=== PATIENT | female | born 1955 | race Caucasian/White ===

== ENCOUNTER 2017-09-22 14:19 | Outpatient (CLI) | payer OTHER | END 2017-09-22 14:20 | disposition home or self-care (01) | LOC: BICMAMMO 14:19 | PROVIDERS: ATTEND Family Medicine | DX: Z12.31 Encounter for screening mammogram for malignant neoplasm of breast (principal); M81.0 Age-related osteoporosis without current pathological fracture; Z80.3 Family history of malignant neoplasm of breast | CPT/HCPCS: 77063; 77067; 77080 ==

== ENCOUNTER 2018-04-13 13:07 | Outpatient (CLI) | payer OTHER ==
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
== END 2018-04-13 13:08 | disposition home or self-care (01) ==
LOC: BICRAD 13:07
PROVIDERS: ATTEND Family Medicine
DX: M25.561 Pain in right knee (principal); M25.522 Pain in left elbow; E88.89 Other specified metabolic disorders; M25.461 Effusion, right knee

== ENCOUNTER 2018-10-30 12:25 | Outpatient (CLI) | payer MEDICARE, MEDICAID ==
--- NOTE | 2018-10-30 13:03 | MMO ---
Bilateral MAMMO Bilat Screen [facility]. CLINICAL HISTORY: Patient is 63 years old and is seen for screening. The patient has no personal history of cancer. The patient has a history of right Excisional Biopsy in September, - benign - Cyst removal. VIEWS: The views performed were: bilateral craniocaudal with tomosynthesis and bilateral mediolateral oblique with tomosynthesis. FILMS COMPARED: The present examination has been compared to prior imaging studies performed at [facility] on 05/16/2013, 07/31/2014, 08/06/2015 and 08/30/2016. MAMMOGRAM FINDINGS: There are scattered fibroglandular densities. There are no suspicious masses, suspicious calcifications, or new areas of architectural distortion. IMPRESSION: THERE IS NO MAMMOGRAPHIC EVIDENCE OF MALIGNANCY. A ROUTINE FOLLOW-UP MAMMOGRAM IN 1 YEAR IS RECOMMENDED. THE RESULTS OF THIS EXAM WERE SENT TO THE PATIENT. ACR BI-RADS Category 1 - Negative MAMMOGRAPHY NOTE: 1. A negative mammogram report should not delay a biopsy if a dominant of clinically suspicious mass is present. 2. Approximately 10% to 15% of breast cancers are not detected by mammography. 3. Adenosis and dense breasts may obscure an underlying neoplasm.
== END 2018-10-30 12:26 | disposition home or self-care (01) ==
LOC: BICMAMMO 12:25
PROVIDERS: ATTEND Family Medicine
DX: Z12.31 Encounter for screening mammogram for malignant neoplasm of breast (principal)
CPT/HCPCS: 77063; 77067

== ENCOUNTER 2019-11-19 14:35 | Outpatient (CLI) | payer MEDICARE, MEDICAID ==
--- NOTE | 2019-11-19 15:28 | BD ---
DEXA bone density examination HISTORY: 64-year-old postmenopausal female for screening. Osteoporosis. COMPARISON: None FINDINGS: L1--bone mineral density 0.833 g/sq cm; T score -1.4 L2--bone mineral density 1.022 g/sq cm; T score -0.1 L3--bone mineral density 0.963 g/sq cm; T score -1.1 L4--bone mineral density 0.952 g/sq cm; T score -1.0 Total L1-L4--bone mineral density 0.946 g/sq cm; T score -0.9 Left femoral neck--bone mineral density0.685 g/sq cm; T score -1.5 Total proximal left femur--bone mineral density 0.834 g/sq cm ; T score -0.9 IMPRESSION: 1. Normal bone mineralization of the lumbar spine. 2. Moderate osteopenia of the left femoral neck indicating 2 fold increased risk for fracture.
--- NOTE | 2019-11-19 15:51 | MMO ---
Bilateral MAMMO Bilat Screen [facility]. CLINICAL HISTORY: Patient is 64 years old and is seen for screening. The patient has the following family history of breast cancer: mother, at age 74, malignant (generic). The patient has no personal history of cancer. The patient has a history of right Excisional Biopsy in September, - benign - Cyst removal. VIEWS: The views performed were: bilateral craniocaudal with tomosynthesis and bilateral mediolateral oblique with tomosynthesis. FILMS COMPARED: The present examination has been compared to prior imaging studies performed at [facility] on 07/31/2014, 08/06/2015, 08/30/2016 and 10/30/2018. This study has been interpreted with the assistance of computer-aided detection. MAMMOGRAM FINDINGS: There are scattered fibroglandular densities. There are no suspicious masses, suspicious calcifications, or new areas of architectural distortion. IMPRESSION: THERE IS NO MAMMOGRAPHIC EVIDENCE OF MALIGNANCY. A ROUTINE FOLLOW-UP MAMMOGRAM IN 1 YEAR IS RECOMMENDED. THE RESULTS OF THIS EXAM WERE SENT TO THE PATIENT. ACR BI-RADS Category 1 - Negative MAMMOGRAPHY NOTE: 1. A negative mammogram report should not delay a biopsy if a dominant of clinically suspicious mass is present. 2. Approximately 10% to 15% of breast cancers are not detected by mammography. 3. Adenosis and dense breasts may obscure an underlying neoplasm. Reported by: JEAN PEREZ MD Electonically Signed: [id number]
== END 2019-11-19 14:36 | disposition home or self-care (01) ==
LOC: BICMAMMO 14:35
PROVIDERS: ATTEND Family Medicine
DX: Z12.31 Encounter for screening mammogram for malignant neoplasm of breast (principal); M81.6 Localized osteoporosis [Lequesne]; Z80.3 Family history of malignant neoplasm of breast; Z91.89 Other specified personal risk factors, not elsewhere classified
CPT/HCPCS: 77063; 77067; 77080

== ENCOUNTER 2020-03-11 12:14 | Emergency (ER) | payer MEDICARE, OTHER ==
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
[2020-03-11] MEDS ORDERED: Ketorolac Tromethamine 30 MG/ML VIAL ONE (14:55)
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
== END 2020-03-11 15:40 | disposition home or self-care (01) ==
LOC: ERS 12:14
DX: S16.1XXA Strain of muscle, fascia and tendon at neck level, initial encounter (principal); S39.012A Strain of muscle, fascia and tendon of lower back, initial encounter; F17.220 Nicotine dependence, chewing tobacco, uncomplicated; V43.62XA Car passenger injured in collision with other type car in traffic accident, initial encounter
CPT/HCPCS: 72125; 72128; 72131; 96372; J1885

== ENCOUNTER 2020-03-27 16:38 | Emergency (ER) | payer MEDICARE, OTHER ==
[2020-03-27] MEDS ORDERED: HYDROcodone/Acetaminophen 5/325 mg Tablet ONE (17:15)
--- NOTE | 2020-03-27 18:06 | RAD ---
TWO VIEWS LEFT FEMUR: 03/27/20 HISTORY: Fall with left femur pain. FINDINGS: Two views of the left femur shows no evidence of acute fracture or dislocation. No degenerative garsia es are seen in the hip or knee. IMPRESSION: No evidence of acute osseous abnormality. POS: EAA
--- NOTE | 2020-03-27 18:09 | RAD ---
TWO VIEWS RIGHT FEMUR: 03/27/20 HISTORY: Fall with right leg pain. FINDINGS: Two views of the right femur shows no evidence of acute fracture or dislocation. No degenerative silveira ges are seen in the knee or hip. No soft tissue swelling is seen. IMPRESSION: Unremarkable exam. POS: MASSIEL
--- NOTE | 2020-03-27 18:30 | RAD ---
SINGLE VIEW OF THE PELVIS: 03/27/20 HISTORY: Fall with pelvic pain. COMPARISON: 02/22/14. FINDINGS: Single view of the pelvis shows no evidence of acute fracture or dislocation. No degenerative changes are seen in either hip or in the spine. The sacroiliac joints are symmetric. Multiple phleboliths ar e seen in the pelvis. IMPRESSION: No evidence of acute osseous abnormality. POS: EAA
--- NOTE | 2020-03-27 18:31 | RAD ---
THREE VIEWS LEFT SHOULDER; 03/27/20 HISTORY: Fall with left shoulder pain. FINDINGS: Two views of the left shoulder shows no evidence of acute fracture or dislocation. No degenerative ch anges are seen. The visualized left thorax is unremarkable. IMPRESSION: No evidence of acute osseous abnormality. POS: EAA
--- NOTE | 2020-03-27 18:43 | CT ---
CT OF THE THORACIC SPINE WITHOUT CONTRAST: 03/27/20 COMPARISON: 03/11/20 HISTORY: Fall with back pain. TECHNIQUE: Multiple contiguous axial images were obtained in a CT of the thoracic spine without contrast. Sagitt al and coronal reformats were performed. FINDINGS: Mild degenerative changes are seen throughout the thoracic spine. The vertebral bodies demonstrate no rmal height and alignment without acute fracture or subluxation. The visualized posterior ribs are unremarkable. There are multiple calcified granulomas in the spleen . There is a punctate nonobstructing calcification in the left kidney. The other visualized preverteb ral and paraspinal soft tissues are unremarkable. IMPRESSION: No evidence of acute osseous abnormality of the thoracic spine. POS: EAA
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
== END 2020-03-27 18:34 | disposition home or self-care (01) ==
LOC: ERS 16:38
DX: S09.90XA Unspecified injury of head, initial encounter (principal); M25.512 Pain in left shoulder; M25.511 Pain in right shoulder; M79.652 Pain in left thigh; M79.651 Pain in right thigh; F17.220 Nicotine dependence, chewing tobacco, uncomplicated; W18.30XA Fall on same level, unspecified, initial encounter
CPT/HCPCS: 70450; 72125; 72128; 72131; 72170

== ENCOUNTER 2020-09-29 15:29 | Outpatient (CLI) | payer MEDICARE, MEDICAID | END 2020-09-29 15:30 | disposition home or self-care (01) | LOC: BICMRI 15:29 | PROVIDERS: ATTEND Family Medicine | DX: M47.26 Other spondylosis with radiculopathy, lumbar region (principal); M47.27 Other spondylosis with radiculopathy, lumbosacral region | CPT/HCPCS: 72148 ==

== ENCOUNTER 2021-12-08 14:23 | Outpatient (CLI) | payer OTHER | END 2021-12-08 14:24 | disposition home or self-care (01) | LOC: BICMAMMO 14:23 | PROVIDERS: ATTEND Family Medicine | DX: Z12.31 Encounter for screening mammogram for malignant neoplasm of breast (principal); Z13.820 Encounter for screening for osteoporosis; M85.89 Other specified disorders of bone density and structure, multiple sites; Z91.89 Other specified personal risk factors, not elsewhere classified; Z80.3 Family history of malignant neoplasm of breast | CPT/HCPCS: 77063; 77067; 77080 ==

== ENCOUNTER 2022-08-26 13:24 | Outpatient (CLI) | payer OTHER | END 2022-08-26 13:25 | disposition home or self-care (01) | LOC: BICMRI 13:24 | PROVIDERS: ATTEND Family Medicine | DX: G25.2 Other specified forms of tremor (principal) | CPT/HCPCS: 70551 ==

== ENCOUNTER 2023-03-02 06:23 | Day surgery (SDC) | payer OTHER, MEDICAID ==
[2023-03-01 10:41] VITALS: BMI 27.3
[2023-03-02] MEDS ORDERED: Midazolam HCl 2 mg/2 ml Vial ONE (07:56)
== END 2023-03-02 09:17 | disposition home or self-care (01) ==
LOC: SDC 06:23
PROVIDERS: ATTEND Internal Medicine
PROC: 0DBM8ZZ Excision of Descending Colon, Via Natural or Artificial Opening Endoscopic (ICD-10-PCS; principal; 2023-03-02)
PROC: 0DBP8ZZ Excision of Rectum, Via Natural or Artificial Opening Endoscopic (ICD-10-PCS; 2023-03-02)
DX: D12.8 Benign neoplasm of rectum (principal); K63.5 Polyp of colon; R19.5 Other fecal abnormalities; K59.09 Other constipation; F32.A Depression, unspecified; F41.9 Anxiety disorder, unspecified; E78.5 Hyperlipidemia, unspecified; F17.290 Nicotine dependence, other tobacco product, uncomplicated; Z79.899 Other long term (current) drug therapy; Z90.710 Acquired absence of both cervix and uterus
CPT/HCPCS: 88305; J2250

== ENCOUNTER 2023-06-01 13:45 | Outpatient (CLI) | payer OTHER, MEDICAID | END 2023-06-01 13:46 | disposition home or self-care (01) | LOC: BICMAMMO 13:45 | PROVIDERS: ATTEND Family Medicine | DX: Z12.31 Encounter for screening mammogram for malignant neoplasm of breast (principal); Z80.3 Family history of malignant neoplasm of breast; Z91.89 Other specified personal risk factors, not elsewhere classified | CPT/HCPCS: 77063; 77067 ==

== ENCOUNTER 2023-10-15 16:02 | Emergency (ER) | payer OTHER, MEDICAID ==
[2023-10-15] MEDS ORDERED: Ketorolac Tromethamine 30 MG (1 mL) VIAL ONE (18:52)
== END 2023-10-15 19:04 | disposition home or self-care (01) ==
LOC: ERS 16:02
DX: S70.02XA Contusion of left hip, initial encounter (principal); R42 Dizziness and giddiness; F17.220 Nicotine dependence, chewing tobacco, uncomplicated; W19.XXXA Unspecified fall, initial encounter
CPT/HCPCS: 70450; 73502; 73552; 96372; 99284; J1885

== ENCOUNTER 2024-06-04 13:49 | Outpatient (CLI) | payer OTHER, MEDICAID | END 2024-06-04 13:50 | disposition home or self-care (01) | LOC: BICMRI 13:49 | PROVIDERS: ATTEND Psychiatry & Neurology Neurology | DX: G91.2 (Idiopathic) normal pressure hydrocephalus (principal); G93.89 Other specified disorders of brain | CPT/HCPCS: 70551 ==